=== PATIENT | female | born 1960 | race Caucasian/White ===

== ENCOUNTER → 2021-09-29 11:11 | Outpatient (BNVA) | payer OTHER, SELFPAY | PROVIDERS: PCP Internal Medicine; Visit Provider Nurse Practitioner Family | DX: M47.816 Spondylosis without myelopathy or radiculopathy, lumbar region (principal); M51.36 Other intervertebral disc degeneration, lumbar region; R10.31 Right lower quadrant pain; M53.3 Sacrococcygeal disorders, not elsewhere classified | CPT/HCPCS: 99202 ==

== ENCOUNTER → 2021-10-31 14:11 | Outpatient (BNVA) | payer OTHER, SELFPAY | PROVIDERS: PCP Internal Medicine; Visit Provider Nurse Practitioner Family | DX: M47.816 Spondylosis without myelopathy or radiculopathy, lumbar region (principal); M51.36 Other intervertebral disc degeneration, lumbar region; M53.3 Sacrococcygeal disorders, not elsewhere classified; R10.31 Right lower quadrant pain | CPT/HCPCS: 99212 ==

== ENCOUNTER 2021-11-15 06:20 | Outpatient (REF) | payer OTHER, SELFPAY ==
--- NOTE | ~2021-11-15 | FL_ITS ---
EXAMINATION: Intraoperative fluoroscopy CLINICAL INFORMATION: Sacrococcygeal disorders COMPARISON: None. TECHNIQUE: Intraoperative fluoroscopy was provided for use by Dr. Irizarry. A total of 4 images were saved to PACS. A radiologist was not present during imaging. Today's dictation is only for administrative purposes to document intraoperative fluoroscopic usage. TOTAL FLUOROSCOPIC TIME: 0.3 minutes FL/FL guidance in treatment room FINDINGS~\^^ Intraoperative fluoroscopy provided for use by Dr. Irizarry. Please see operative note for detailed findings.
== END 2021-11-15 06:21 | disposition home or self-care (01) ==
LOC: HO.RADIR 06:20
PROVIDERS: Visit Provider Internal Medicine
DX: M53.3 Sacrococcygeal disorders, not elsewhere classified (principal)
CPT/HCPCS: 64451

== ENCOUNTER → 2021-11-17 11:48 | Outpatient (BNVA) | payer OTHER, SELFPAY | PROVIDERS: PCP Internal Medicine; Visit Provider Nurse Practitioner Family | DX: M53.3 Sacrococcygeal disorders, not elsewhere classified (principal); M25.551 Pain in right hip ==

== ENCOUNTER 2022-01-24 07:33 | Outpatient (REF) | payer OTHER, SELFPAY ==
--- NOTE | ~2022-01-24 | FL_ITS ---
EXAMINATION: XR FLUOROSCOPY WITH IMAGES CLINICAL INFORMATION: M53.3 - Sacrococcygeal disorders, not elsewhere classified COMPARISON: Fluoroscopic spot views 11/15/2021. TECHNIQUE: Fluoroscopy performed by Dr. Yury Shukla. Fluoroscopy time: 0.2 minutes DAP: 0.341 Gycm2 Images: 2 FINDINGS: Spinal needle overlies mid to lower right SI joint. FL/FL guidance in treatment room IMPRESSION: Fluoroscopy for pain management procedure.
== END 2022-01-24 07:34 | disposition home or self-care (01) ==
LOC: HO.RADIR 07:33
PROVIDERS: Visit Provider Internal Medicine
DX: M53.3 Sacrococcygeal disorders, not elsewhere classified (principal)
CPT/HCPCS: 27096; J1040; J2795

== ENCOUNTER → 2022-01-25 11:33 | Outpatient (BNVA) | payer OTHER, SELFPAY | PROVIDERS: PCP Internal Medicine; Visit Provider Anesthesiology | DX: Z13.89 Encounter for screening for other disorder (principal) ==

== ENCOUNTER 2022-04-20 10:13 | Day surgery (SDC) | payer OTHER, SELFPAY ==
[2022-04-16 11:31] VITALS: BMI 25.4
[2022-04-20] VITALS (10 sets, daily range): BP systolic 105–148; BP diastolic 77–90; PULSE 72–88; RESP 14–18; TEMP 36.2–36.6; O2SAT 95–100
--- NOTE | ~2022-04-20 | FL_ITS ---
EXAMINATION: XR FLUOROSCOPY WITH IMAGES CLINICAL INFORMATION: SI joint fusion COMPARISON: Fluoroscopic spot views 01/24/2022 TECHNIQUE: Fluoroscopy performed by Dr. Raymond Prieto. Fluoroscopy time: 0.5. Cumulative Dose: 12.2 mGy. DAP: 3.33 Gy-cm2. Images: 2. FINDINGS: There is a metallic device overlying the mid right sacroiliac joint. FL/FL guidance in OR IMPRESSION: Fluoroscopy for pain management procedure.
[2022-04-20] MEDS: Lactated Ringers 1,000 ML 100 ML IVCONT (10:41)
--- NOTE | 2022-04-20 10:47 | P.HPSUR_ITS ---
Pre-Procedural Eval Section A Date of Service: 04/20/22 The patient is an INPATIENT: No Changes since office visit: Yes Patient answered all questions The History & Physical has been completed within 30 days and I have reviewed it.: No Section B Chief Complaint: sacrococcygeal disorder Details of Present Illness: as above Relevant Family History (Specify if Yes): No Relevant Social History: None Present Medications: None Medical History: No relevant PMH History of Previous Operations: No relevant previous surgery Allergies: Allergies Allergy/AdvReac Type Severity Reaction Status Date / Time hydrocodone Allergy Intermediate Rash Verified 01/25/22 11:34 aspirin AdvReac Severe tachycardia Verified 01/25/22 11:34 Review of Systems Sugical H&P ROS: Negative: Constitution, Cardiovascular, Respiratory, Neurological, Psychiatric, Hem-Onc, Allergic/Immunologic, Gastrointestinal, Genitourinary, Musculoskeletal, Integumentary, Endocrine and Eyes/Ears/Nose/Thro at Exam Surgical H&P Exam: Normal: HEENT, Normal: Heart, Normal: Lungs, Normal: Extremities, Normal: Abdomen, Normal: Skin and Normal: Neurological Plan Diagnosis/Plan: Unchanged I have reviewed the history and physical and performed a pertinent physical examination on my patient. No changes have occurred unless specified.
--- NOTE | 2022-04-20 10:48 | W.PM.OPN ---
Operative Note Operative Note Date of Service: 04/20/22 Narrative: Sacroiliac joint stabilisation procedure. posterior sacroiliac joint fusion on the right using LINQ SI joint stabilization system with C-arm fluoroscopy for guidance.? Shanell is a very pleasant 61 y.o. female who is suffering from the right sacroiliac joint insufficiency and sacroiliitis.??SHe failed conservative management of sacroiliitis.?SHe came today to receive the procedures as above.??The risks and benefits including bleeding, infection, peripheral nerve damage, failure to reduce the pain were explained to the patient.?The patient came to the operating room, he was positioned on the stretcher supine, [place] [employer] monitors were applied and patient was administered with general endotracheal anesthesia.??After that the patient was transferred on operating table and positioned prone with all pressure points protected. The patient was administered 2 grams cefazolin IV approximately 25 minutes before the start of the procedure.? Time-out was performed delineating correct site, side, and nature of the procedure, name and date of of the patient, risk of fire, need for DVT prophylaxis, need for antibiotics.? The patient was transferred?on?radiolucent table. All pressure points were protected again. Lower back and bilateral buttocks were prepped with ChloraPrep and draped with full body drape. 3. 5 cm posterior midline incision over the projection of the right? S1 foramina was performed.? Soft tissue dissection done to sacroiliac joint and thorough blind dissection was made in the direction of the?sacroiliac joint.? K-wire pin was inserted into the sacroiliac joint and guiding instrument was inserted into the joint using the pin as a guide and advanced into the joint on the intermittent anterior posterior and lateral views.??? After that pin was removed and rasping device was inserted to broach and rasp sacroiliac joint.? Once joint was prepared and inserted the structural allograft implant was hammered into the joint . It was packed with ortho biologics in and around the implant to provide better opportunity? for bones fusion.? The position of the allograft was confirmed radiographically.? The wound was irrigated, hemostasis was achieved,? wound was closed in 2 layers.? Surgery was concluded by performing standard suture closing technique:? 0 Polysorb suture was used to close the wound and polisorb 2-0 were used to approximate the level of the skin and carol ann were applied.? ? Skin glue was applied to the skin edges.? Sterile?dressing was applied with bacitracin ointment .? The patient tolerated procedure well she was awaken, extubated? and taken outside of the operating room to PACU where she recovered uneventfully. SHe went home without immediate complications. she will be wearing an SI joint fixation belt for the 10? weeks after the procedure.
--- NOTE | 2022-04-20 11:41 | HO.ANESPROP2 ---
HPI - Anesthesia Eval Consult details Narrative: Sacroilliac joint pain PMFSH Active Problems Active Problems: All Active Problems (Updated 01/25/22 @ 12:34 by Raymond Prieto MD) Spondylosis of lumbar spine (Acute) Disc degeneration, lumbar (Acute) RLQ abdominal pain (Acute) Sacroiliac joint pain (Acute) Right hip pain (Acute) Sacroiliitis (Acute) Past Medical History Medical History (Updated 01/25/22 @ 12:34 by Raymond Prieto MD) Sacroiliitis Family History Family history of problems with anesthesia: No Surgical History Surgical History (Updated 04/16/22 @ 11:31 by Nedra Joseph RN) Surgical history unknown History of Problems with Anesthesia: No Social History Social History Are you DNR?: No Advance Directives: No Advance Directives Information Provided: Yes Recently lost weight without trying: No Nutrition Risks: No Nutritional Risk Meds Allergies Allergy/AdvReac Type Severity Reaction Status Date / Time hydrocodone Allergy Intermediate Rash Verified 01/25/22 11:34 aspirin AdvReac Severe tachycardia Verified 01/25/22 11:34 Active Medications: Current Medications Fentanyl (Fentanyl Citrate/Pf 100 Mcg/2 Ml Vial) 25 mcg IVPUSH Q5M PRN; Protocol PRN Reason: Pain, Moderate (Pain Scale 4-6 Lactated Ringer's (Lr) 1,000 mls @ 100 mls/hr IVCONT .Q10H RONI Last Admin: 04/20/22 10:41 Dose: 100 mls/hr Ondansetron HCl (Ondansetron Hcl 4 Mg/2 Ml Vial) 4 mg IVPUSH ONCE PRN PRN Reason: Nausea and Vomiting Home Medications Medication Instructions Recorded Confirmed Last Taken Type finasteride 5 mg tablet 5 mg PO DAILY alopecia 09/29/21 04/20/22 04/19/22 History lisinopril 10 mg tablet 10 mg PO DAILY 09/29/21 04/20/22 04/19/22 History montelukast 10 mg tablet 10 mg PO DAILY 09/29/21 04/20/22 04/19/22 History venlafaxine 75 mg capsule,extended 75 mg PO BID 09/29/21 04/20/22 04/20/22 History release 24 hr Exam Exam Date and Time: April 20, 2022 1141 Height,Weight and Vital Signs: Height 5 ft 4 in Weight 67.132 kg Last Vital Signs Temp 98 F 04/20/22 10:16 Pulse 85 04/20/22 10:16 Resp 18 04/20/22 10:16 BP 105/77 04/20/22 10:16 Pulse Ox 97 04/20/22 10:16 O2 Del Method 04/20/22 10:16 Airway Mallampati Class: II TM Dist: >3cm Neck ROM: Full Loose/Missing/Broken Teeth: No Heart: rrr+[id number] Lungs: cta b/l Assessment and Plan Assessment Anesthesia Assessment: Anesthesia Plan Discussed and Chart Reviewed Final Anesthetic Review Family History of Problems with Anesthesia: No History of Problems with Anesthesia: No NPO: Yes ASA Class: II Final Preanesthetic Review: No Changes in Pt Med Stat, Meds/Allgs Chart Reviewed, Consent Obtained/Reviewed and Anes Risks/Benef Reviewed Patient Risk: Intermediate Procedure Risk: Intermediate Assessment/Block/Sedation in SS: Assess/Block/Sedation-SS Anesthetic Plan Anesthetic Plan: GA and Agree w/ Assess. and Plan Disposition: Standard PACU
--- NOTE | 2022-04-20 11:45 | P.CONAN_ITS ---
[facility] Active Problems Active Problems: All Active Problems (Updated 01/25/22 @ 12:34 by Raymond Prieto MD) Spondylosis of lumbar spine (Acute) Disc degeneration, lumbar (Acute) RLQ abdominal pain (Acute) Sacroiliac joint pain (Acute) Right hip pain (Acute) Sacroiliitis (Acute) Past Medical History Medical History Sacroiliitis Family History Family history of problems with anesthesia: No Surgical History Surgical History (Updated 04/16/22 @ 11:31 by Nedra Joseph RN) Surgical history unknown History of Problems with Anesthesia: No Social History Social History Are you DNR?: No Advance Directives: No Advance Directives Information Provided: Yes Recently lost weight without trying: No Nutrition Risks: No Nutritional Risk Meds Allergies Allergy/AdvReac Type Severity Reaction Status Date / Time hydrocodone Allergy Intermediate Rash Verified 01/25/22 11:34 aspirin AdvReac Severe tachycardia Verified 01/25/22 11:34 Active Medications: Current Medications Acetaminophen (Acetaminophen 325 Mg Tablet) 650 mg PO ONCE PRN PRN Reason: Pain, Mild (Pain Scale 1-3) Fentanyl (Fentanyl Citrate/Pf 100 Mcg/2 Ml Vial) 25 mcg IVPUSH Q5M PRN; Protocol PRN Reason: Pain, Moderate (Pain Scale 4-6 Fentanyl (Fentanyl Citrate/Pf 100 Mcg/2 Ml Vial) 50 mcg IVPUSH Q5M PRN; Protocol PRN Reason: Pain, Moderate (Pain Scale 4-6 Hydromorphone HCl (Hydromorphone Hcl 0.5 Mg/0.5 Ml Syringe) 0.5 mg IVPUSH Q5M PRN; Protocol PRN Reason: Pain, Severe (Pain Scale 7-10) Lactated Ringer's (Lr) 1,000 mls @ 100 mls/hr IVCONT .Q10H RONI Last Admin: 04/20/22 10:41 Dose: 100 mls/hr Promethazine HCl 6.25 mg/ (Sodium Chloride) 50.25 mls @ 201 mls/hr IV ONCE PRN PRN Reason: Nausea and Vomiting Ondansetron HCl (Ondansetron Hcl 4 Mg/2 Ml Vial) 4 mg IVPUSH ONCE PRN PRN Reason: Nausea and Vomiting Ondansetron HCl (Ondansetron Hcl 4 Mg/2 Ml Vial) 4 mg IVPUSH ONCE PRN PRN Reason: Nausea and Vomiting Oxycodone HCl (Oxycodone Hcl Immed Release 5 Mg Tablet) 10 mg PO ONCE PRN PRN Reason: Pain, Mild (Pain Scale 1-3) Home Medications Medication Instructions Recorded Confirmed Last Taken Type finasteride 5 mg tablet 5 mg PO DAILY alopecia 09/29/21 04/20/22 04/19/22 History lisinopril 10 mg tablet 10 mg PO DAILY 09/29/21 04/20/22 04/19/22 History montelukast 10 mg tablet 10 mg PO DAILY 09/29/21 04/20/22 04/19/22 History venlafaxine 75 mg capsule,extended 75 mg PO BID 09/29/21 04/20/22 04/20/22 History release 24 hr Exam Exam Date and Time: April 20, 2022 1145 Height,Weight and Vital Signs: Height 5 ft 4 in Weight 67.132 kg Last Vital Signs Temp 98 F 04/20/22 10:16 Pulse 85 04/20/22 10:16 Resp 18 04/20/22 10:16 BP 105/77 04/20/22 10:16 Pulse Ox 97 04/20/22 10:16 O2 Del Method 04/20/22 10:16 Airway Mallampati Class: III TM Dist: >3cm Neck ROM: Full Loose/Missing/Broken Teeth: No Heart: rrr Lungs: clear Assessment and Plan Final Anesthetic Review Family History of Problems with Anesthesia: No History of Problems with Anesthesia: No ASA Class: II Final Preanesthetic Review: No Changes in Pt Med Stat, Meds/Allgs Chart Reviewed, Consent Obtained/Reviewed and Anes Risks/Benef Reviewed Patient Risk: Intermediate Procedure Risk: Low Anesthetic Plan Anesthetic Plan: GA Disposition: Standard PACU
--- NOTE | 2022-04-20 13:31 | PM.OP ---
Brief Operative Note Date of Service: 04/20/22 Pre-op diagnosis: Sacroiliitis Post-op diagnosis: same Procedure: Sacroiliac joint stabilization right Implants: lyophilized cadaver bone with biologicals promoting bone growth Surgeon: Raymond Prieto MD Anesthesia: GETA Was an Motor Scooter Repairer used for this Procedure?: No Estimated blood loss (mL): 15 Pathology: none sent Condition: stable Disposition: PACU
[2022-04-20] MEDS: Acetaminophen 325 MG TABLET 650 MG PO (13:35)
[2022-04-20] MEDS: fentaNYL citrate/PF 100 MCG/2 ML VIAL 50 MCG IVPUSH ×2 (13:36→13:41)
[2022-04-20] MEDS: oxyCODONE HCl Immed Release 5 MG TABLET 10 MG PO (14:05)
== END 2022-04-20 14:55 | disposition home or self-care (01) ==
PROVIDERS: PCP Internal Medicine; Visit Provider Anesthesiology
PROC: (CPT 27279; principal; 2022-04-20 11:50)
DX: M53.3 Sacrococcygeal disorders, not elsewhere classified (principal); M25.551 Pain in right hip; M46.1 Sacroiliitis, not elsewhere classified; M54.50 Low back pain, unspecified; Z79.899 Other long term (current) drug therapy; Z88.8 Allergy status to other drugs, medicaments and biological substances
CPT/HCPCS: 27279; C1713; J0330; J0690; J1100; J2250; J2405; J2795; J3010; J3370

== ENCOUNTER → 2022-04-26 09:00 | Outpatient (BNVA) | payer OTHER, SELFPAY | PROVIDERS: PCP Internal Medicine; Visit Provider Anesthesiology | DX: M53.3 Sacrococcygeal disorders, not elsewhere classified (principal); M46.1 Sacroiliitis, not elsewhere classified; M25.551 Pain in right hip; Z98.890 Other specified postprocedural states | CPT/HCPCS: 99212 ==

== ENCOUNTER → 2022-05-09 16:55 | Outpatient (BNVA) | payer OTHER, SELFPAY | PROVIDERS: PCP Internal Medicine; Visit Provider Anesthesiology | DX: M53.3 Sacrococcygeal disorders, not elsewhere classified (principal); M25.551 Pain in right hip; M46.1 Sacroiliitis, not elsewhere classified | CPT/HCPCS: 99212 ==

== ENCOUNTER → 2022-07-04 15:10 | Outpatient (BNVA) | payer OTHER, SELFPAY | PROVIDERS: PCP Internal Medicine; Visit Provider Anesthesiology | DX: M53.3 Sacrococcygeal disorders, not elsewhere classified (principal); M25.551 Pain in right hip; M46.1 Sacroiliitis, not elsewhere classified | CPT/HCPCS: 99212 ==

== ENCOUNTER 2022-07-18 09:52 | Outpatient (REF) | payer OTHER, SELFPAY ==
--- NOTE | ~2022-07-18 | CT_ITS ---
EXAMINATION: CT PELVIS WITHOUT CONTRAST CLINICAL INFORMATION: Sacrococcygeal disorder. COMPARISON: Multiple prior fluoroscopic sacroiliac images, most recent dated 04/20/2022. TECHNIQUE: Helical scanning was performed with submillimeter collimation through the pelvis. Sagittal and coronal multiplanar 2-D reconstructions were obtained. This CT examination was performed using dose optimization techniques as appropriate, variously including the following: *Automated exposure control *Adjustment of mA and/or kV according to patient size (this includes techniques or standardized protocols for targeted exams where dose is matched to indication/reason for exam; i.e. extremities or head) *Use of iterative reconstruction technique DLP: 563 mGy-cm FINDINGS: PELVIS: Moderate stool burden which could indicate a degree of constipation. No bowel wall thickening or inflammatory change. No pelvic bowel obstruction. Unremarkable appendix. The remaining visualized intrapelvic structures are unremarkable. No soft tissue mass or fluid collection. No significant pelvic wall hernia. OSSEOUS STRUCTURES: Orthopedic hardware noted within the posterior aspect of the right sacroiliac joint. No hardware fracture. No perihardware lucency to suggest loosening or infection. No significant sacroiliac joint space narrowing. Small amount of air within the anterior aspect of the right and left sacral iliac joints with mild subchondral sclerosis and tiny marginal osteophytes. No periarticular erosion. No acute fracture or dislocation. No concerning lytic or blastic osseous lesion. The visualized muscles and tendons are grossly intact, however, evaluation is significantly limited on CT examination. CT/CT bony pelvis IMPRESSION: 1. Orthopedic hardware within the posterior aspect of the right sacroiliac joint without evidence of hardware complication. No hardware fracture or perihardware lucency to suggest loosening or infection. 2. Mild degenerative arthritis at the anterior aspect of the right and left sacroiliac joints. No periarticular erosion. 3. Moderate stool burden, which could indicate a degree of constipation.
== END 2022-07-18 09:53 | disposition home or self-care (01) ==
LOC: HO.CT 09:52
PROVIDERS: Visit Provider Anesthesiology
DX: M53.3 Sacrococcygeal disorders, not elsewhere classified (principal); M25.551 Pain in right hip; M46.1 Sacroiliitis, not elsewhere classified
CPT/HCPCS: 72192

== ENCOUNTER → 2022-08-16 08:57 | Outpatient (BNVA) | payer OTHER, SELFPAY | PROVIDERS: PCP Internal Medicine; Visit Provider Anesthesiology | DX: Z13.89 Encounter for screening for other disorder (principal) ==

== ENCOUNTER 2022-09-07 06:07 | Day surgery (SDC) | payer OTHER, SELFPAY ==
[2022-09-03 21:03] VITALS: BMI 25.7
--- NOTE | 2022-09-06 12:07 | P.CONAN_ITS ---
Documented by User: Aby Alvarado NP 09/06/22 12:08 HPI - Anesthesia Eval Consult details Narrative: 62yo F for Left Sacroiliac Joint Stabilization with Fusion s/p right side 03/2022 with GA-ETT 7.5 PMFSH Active Problems Active Problems: All Active Problems (Updated 09/03/22 @ 20:59 by Kristyn Guzman RN) Spondylosis of lumbar spine (Acute) Disc degeneration, lumbar (Acute) RLQ abdominal pain (Acute) Sacroiliac joint pain (Acute) Right hip pain (Acute) Sacroiliitis (Acute) Past Medical History Medical History (Updated 09/03/22 @ 20:59 by Kristyn Guzman RN) Arthritis Back pain GERD (gastroesophageal reflux disease) History of renal stone Migraines Sacroiliac instability Sacroiliitis Family History Family history of problems with anesthesia: No Surgical History Surgical History (Updated 09/03/22 @ 20:58 by Kristyn Guzman RN) H/O cervical discectomy History of toe surgery History of total right knee replacement (TKR) History of Problems with Anesthesia: No Social History Social History Patient Tobacco Use Status: Never used Tobacco Meds Allergies Allergy/AdvReac Type Severity Reaction Status Date / Time hydrocodone Allergy Intermediate Rash Verified 08/16/22 08:58 aspirin AdvReac Severe tachycardia Verified 08/16/22 08:58 shellfish derived AdvReac Vomiting Verified 09/03/22 20:39 Home Medications Medication Instructions Recorded Confirmed Last Taken Type finasteride 5 mg tablet 5 mg PO DAILY alopecia 09/29/21 09/03/22 09/04/22 History montelukast 10 mg tablet 10 mg PO DAILY 09/29/21 09/03/22 09/06/22 History venlafaxine 75 mg capsule,extended 75 mg PO BID 09/29/21 09/03/22 09/07/22 History release 24 hr Exam Exam Date and Time: September 06, 2022 1207 Height,Weight and Vital Signs: Height 5 ft 4 in Weight 68.039 kg Assessment and Plan Assessment Anesthesia Assessment: Chart Reviewed Final Anesthetic Review Family History of Problems with Anesthesia: No History of Problems with Anesthesia: No Documented by User: Jazzmine Marx MD 09/07/22 13:06 [facility] Past Medical History Medical History (Updated 09/03/22 @ 20:59 by Kristyn Guzman, RN) Arthritis Back pain GERD (gastroesophageal reflux disease) History of renal stone Migraines Sacroiliac instability Sacroiliitis Surgical History Surgical History (Updated 09/03/22 @ 20:58 by Kristyn Guzman RN) H/O cervical discectomy History of toe surgery History of total right knee replacement (TKR) Social History Social History Patient Tobacco Use Status: Never used Tobacco Meds Allergies Allergy/AdvReac Type Severity Reaction Status Date / Time hydrocodone Allergy Intermediate Rash Verified 08/16/22 08:58 aspirin AdvReac Severe tachycardia Verified 08/16/22 08:58 shellfish derived AdvReac Vomiting Verified 09/03/22 20:39 Home Medications Medication Instructions Recorded Confirmed Last Taken Type finasteride 5 mg tablet 5 mg PO DAILY alopecia 09/29/21 09/03/22 09/04/22 History montelukast 10 mg tablet 10 mg PO DAILY 09/29/21 09/03/22 09/06/22 History venlafaxine 75 mg capsule,extended 75 mg PO BID 09/29/21 09/03/22 09/07/22 History release 24 hr Exam Airway Mallampati Class: II TM Dist: >3cm Neck ROM: Limited (Good ext/flexion sp plates) Heart: rr Lungs: cta Assessment and Plan Final Anesthetic Review NPO: Yes ASA Class: II Final Preanesthetic Review: No Changes in Pt Med Stat, Meds/Allgs Chart Reviewed, Consent Obtained/Reviewed and Anes Risks/Benef Reviewed Patient Risk: Low Procedure Risk: Low Anesthetic Plan Anesthetic Plan: MAC: Disposition: Standard PACU
--- NOTE | 2022-09-06 14:56 | P.HPSUR_ITS ---
Pre-Procedural Eval Section A Date of Service: 09/06/22 The patient is an INPATIENT: No Changes since office visit: Yes Patient answered all questions The History & Physical has been completed within 30 days and I have reviewed it.: No Section B Chief Complaint: Sacroiliitis,Sacrococcygeal disorders, Details of Present Illness: as above Relevant Family History (Specify if Yes): No Relevant Social History: None Present Medications: None Medical History: No relevant PMH History of Previous Operations: No relevant previous surgery Allergies: Allergies Allergy/AdvReac Type Severity Reaction Status Date / Time hydrocodone Allergy Intermediate Rash Verified 08/16/22 08:58 aspirin AdvReac Severe tachycardia Verified 08/16/22 08:58 shellfish derived AdvReac Vomiting Verified 09/03/22 20:39 Review of Systems Sugical H&P ROS: Negative: Constitution, Cardiovascular, Respiratory, Neurological, Psychiatric, Hem-Onc, Allergic/Immunologic, Gastrointestinal, Gen itourinary, Musculoskeletal, Integumentary, Endocrine and Eyes/Ears/Nose/Throat Exam Surgical H&P Exam: Normal: HEENT, Normal: Heart, Normal: Lungs, Normal: Extremities, Normal: Abdomen, Normal: Skin and Normal: Neurological Plan Diagnosis/Plan: Unchanged I have reviewed the history and physical and performed a pertinent physical examination on my patient. No changes have occurred unless specified. Time Spent With Patient Time: Total time managing care of this patient today ____ minutes.
--- NOTE | ~2022-09-07 | FL_ITS ---
EXAMINATION: XR FLUOROSCOPY WITH IMAGES CLINICAL INFORMATION: Sacroiliac joint effusion. COMPARISON: CT pelvis 07/18/2022 TECHNIQUE: Fluoroscopy Supervised By: Dr. Raymond Prieto. Fluoroscopy Time: 0.6 minutes. Cumulative Dose: 27.1 mGy. DAP: 7.40 Gycm2. Images: 11. FINDINGS: Initial images demonstrate spinal needle overlying mid left SI joint with needle tip at mid depth. Subsequent images show hardware and a cannulated device overlying the SI joint. Fusion hardware seen mid SI joint. There is prior fusion contralateral right side is noted on CT 07/18/2022. FL/FL guidance in OR IMPRESSION: Fluoroscopy for pain management procedure.
[2022-09-07 06:08] VITALS: BP 144/92; PULSE 86; RESP 20; TEMP 36.6; O2SAT 98
[2022-09-07] MEDS: Lactated Ringers 1,000 ML 100 ML IVCONT (06:36)
[2022-09-07 09:08] VITALS: BP 167/97; PULSE 83; RESP 16; TEMP 36.3; O2SAT 97
[2022-09-07 09:13] VITALS: BP 160/92; PULSE 74; RESP 16; O2SAT 98
--- NOTE | 2022-09-07 09:13 | PM.OP ---
Brief Operative Note Date of Service: 04/20/22 Pre-op diagnosis: Sacroiliitis Post-op diagnosis: same Procedure: Sacroiliac joint stabilization left Implants: lyophilized cadaver bone with biologicals promoting bone growth Surgeon: Raymond Prieto MD Anesthesia: GETA Was an System Support Technician used for this Procedure?: No Estimated blood loss (mL): 15 Pathology: none sent Condition: stable Disposition: PACU
--- NOTE | 2022-09-07 09:14 | P.OP_ITS ---
Operative Note Operative Note Date of Service: 09/07/22 Narrative: Sacroiliac joint stabilisation procedure. posterior sacroiliac joint fusion on the left using LINQ SI joint stabilization system with C-arm fluoroscopy for guidance.? Shanell is a very pleasant 61 y.o. female who is suffering from the left sacroiliac joint insufficiency and sacroiliitis.??SHe failed conservative management of sacroiliitis.?SHe came today to receive the procedures as above.??The risks and benefits including bleeding, infection, peripheral nerve damage, failure to reduce the pain were explained to the patient.?The patient came to the operating room, he was positioned on the stretcher supine, [place] [employer] monitors were applied and patient was administered with general endotracheal anesthesia.??After that the patient was transferred on operating table and positioned prone with all pressure points protected. The patient was administered 2 grams cefazolin IV approximately 25 minutes before the start of the procedure.? Time-out was performed delineating correct site, side, and nature of the procedure, name and date of of the patient, risk of fire, need for DVT prophylaxis, need for antibiotics.? The patient was transferred?on?radiolucent table. All pressure points were protected again. Lower back and bilateral buttocks were prepped with ChloraPrep and draped with full body drape. 3. 5 cm posterior midline incision over the projection of the right? S1 foramina was performed.? Soft tissue dissection done to sacroiliac joint and thorough blind dissection was made in the direction of the?sacroiliac joint.? K-wire pin was inserted into the left sacroiliac joint and guiding instrument was inserted into the joint using the pin as a guide and advanced into the joint on the intermittent anterior posterior and lateral views.??? After that pin was removed and rasping device was inserted to broach and rasp sacroiliac joint.? Once joint was prepared and inserted the structural allograft implant was hammered into the joint . It was packed with ortho biologics in and around the implant to provide better opportunity? for bones fusion.? The position of the allograft was confirmed radiographically.? The wound was irrigated, hemostasis was achieved,? wound was closed in 2 layers.? Surgery was concluded by performing standard suture closing technique:? 0 Polysorb suture was used to close the wound and polisorb 2-0 were used to approximate the level of the skin and carol ann were applied.? ? Skin glue was applied to the skin edges.? Sterile?dressing was applied with bacitracin ointment .? The patient tolerated procedure well she was awaken, extubated? and taken outside of the operating room to PACU where she recovered uneventfully. SHe went home without immediate complications. she will be wearing an SI joint fixation belt for the 1 0? weeks after the procedure.
[2022-09-07 09:18] VITALS: BP 133/78; PULSE 78; RESP 17; O2SAT 98
[2022-09-07 09:23] VITALS: BP 150/81; PULSE 74; RESP 18; O2SAT 98
[2022-09-07 09:38] VITALS: BP 137/75; PULSE 69; RESP 18; TEMP 36.4; O2SAT 97
== END 2022-09-07 10:15 | disposition home or self-care (01) ==
PROVIDERS: PCP Internal Medicine; Visit Provider Anesthesiology
PROC: (CPT 27279; principal; 2022-09-07 07:30)
DX: M46.1 Sacroiliitis, not elsewhere classified (principal); M53.3 Sacrococcygeal disorders, not elsewhere classified; M25.551 Pain in right hip; Z79.899 Other long term (current) drug therapy; Z88.8 Allergy status to other drugs, medicaments and biological substances; Z96.651 Presence of right artificial knee joint
CPT/HCPCS: 27279; C1713; J0330; J0690; J2250; J2795; J3010; J3370

== ENCOUNTER → 2022-09-13 09:47 | Outpatient (BNVA) | payer OTHER, SELFPAY | PROVIDERS: PCP Internal Medicine; Visit Provider Anesthesiology | DX: M53.3 Sacrococcygeal disorders, not elsewhere classified (principal); M25.551 Pain in right hip; M46.1 Sacroiliitis, not elsewhere classified | CPT/HCPCS: 99212 ==

== ENCOUNTER → 2022-09-20 09:49 | Outpatient (BNVA) | payer OTHER, SELFPAY | PROVIDERS: PCP Internal Medicine; Visit Provider Anesthesiology | DX: M53.3 Sacrococcygeal disorders, not elsewhere classified (principal); M25.551 Pain in right hip; M46.1 Sacroiliitis, not elsewhere classified | CPT/HCPCS: 99212 ==

== ENCOUNTER → 2022-11-14 11:52 | Outpatient (BNVA) | payer OTHER, SELFPAY | PROVIDERS: PCP Internal Medicine; Visit Provider Anesthesiology | DX: M53.3 Sacrococcygeal disorders, not elsewhere classified (principal); M46.1 Sacroiliitis, not elsewhere classified; M25.551 Pain in right hip; G58.9 Mononeuropathy, unspecified | CPT/HCPCS: 99212 ==

== ENCOUNTER 2022-12-25 06:08 | Outpatient (REF) | payer OTHER, SELFPAY ==
--- NOTE | ~2022-12-25 | FL_ITS ---
EXAMINATION: XR FLUOROSCOPY WITH IMAGES CLINICAL INFORMATION: G58.9 - Mononeuropathy, unspecified COMPARISON: CT pelvis 07/18/2022 TECHNIQUE: Fluoroscopy Supervised By: Dr. Raymond Prieto. Fluoroscopy Time: 0.4 minutes. Cumulative Dose: 3.72 mGy. DAP: 1.01 Gycm2. Images: 4. FINDINGS: There are 3 spinal needles with tips overlying the superior right iliac crest. There is contrast in the overlying soft tissue. No visible vascular communication. FL/FL guidance in treatment room IMPRESSION: Fluoroscopy for pain management procedures.
== END 2022-12-25 06:09 | disposition home or self-care (01) ==
LOC: CF 06:08
PROVIDERS: Visit Provider Anesthesiology
DX: G58.9 Mononeuropathy, unspecified (principal)
CPT/HCPCS: 64450; J2795

== ENCOUNTER → 2023-01-14 16:07 | Outpatient (BNVA) | payer OTHER, SELFPAY | PROVIDERS: PCP Internal Medicine; Visit Provider Anesthesiology ==

== ENCOUNTER 2023-02-05 06:16 | Outpatient (REF) | payer OTHER, SELFPAY ==
--- NOTE | ~2023-02-05 | FL_ITS ---
EXAMINATION: XR FLUOROSCOPY WITH IMAGES CLINICAL INFORMATION: Mononeuropathy, unspecified COMPARISON: None available. TECHNIQUE: Fluoroscopy Supervised By: Dr. Prieto. Fluoroscopy Time: 0.4 minutes. Cumulative Dose: 3.73 mGy. DAP: 1.01 Gycm2. Images: 3. FINDINGS: Images demonstrate needle placement and contrast injection of the soft tissues adjacent to the left iliac crest and lateral L4 and L5 vertebrae. FL/FL guidance in treatment room IMPRESSION: Fluoroscopy guidance for pain management procedure
== END 2023-02-05 06:17 | disposition home or self-care (01) ==
LOC: CF 06:16
PROVIDERS: Visit Provider Anesthesiology
DX: G58.9 Mononeuropathy, unspecified (principal); M53.3 Sacrococcygeal disorders, not elsewhere classified; M46.1 Sacroiliitis, not elsewhere classified; M25.551 Pain in right hip
CPT/HCPCS: 64450

== ENCOUNTER → 2023-02-07 09:08 | Outpatient (BNVA) | payer OTHER, SELFPAY | PROVIDERS: PCP Internal Medicine; Visit Provider Anesthesiology ==

== ENCOUNTER 2023-02-28 13:07 | Day surgery (SDC) | payer OTHER, SELFPAY ==
--- NOTE | ~2023-02-28 | FL_ITS ---
EXAMINATION: XR FLUOROSCOPY WITH IMAGES CLINICAL INFORMATION: There are ablation therapy for pain COMPARISON: 02/05/2023 TECHNIQUE: Fluoroscopy Supervised By: Dr. Raymond Prieto. Fluoroscopy Time: 0.3 minutes. Cumulative Dose: 2.94 mGy. DAP: 0.801 Gycm2. Images: 1. FINDINGS: 4 sets of Electrodes overlie the left iliac crest. FL/FL guidance in OR IMPRESSION: Fluoroscopy for pain management procedure.
[2023-02-28 13:23] VITALS: BMI 25.7
[2023-02-28 13:27] VITALS: BP 108/76; PULSE 99; RESP 18; TEMP 36.4; O2SAT 97
--- NOTE | 2023-02-28 13:48 | MHC.SHP ---
Pre-Procedural Eval Section A Date of Service: 02/28/23 The patient is an INPATIENT: No Changes since office visit: Yes Patient answered all questions The History & Physical has been completed within 30 days and I have reviewed it.: No Section B Chief Complaint: Mononeuropathy, unspecified Details of Present Illness: as above Relevant Family History (Specify if Yes): No Relevant Social History: None Present Medications: None Medical History: No relevant PMH History of Previous Operations: No relevant previous surgery Allergies: Allergies Allergy/AdvReac Type Severity Reaction Status Date / Time hydrocodone Allergy Intermediate Rash Verified 02/28/23 13:29 aspirin AdvReac Severe tachycardia Verified 02/28/23 13:29 shellfish derived AdvReac Vomiting Verified 02/28/23 13:29 Review of Systems Sugical H&P ROS: Negative: Constitution, Cardiovascular, Respiratory, Neurological, Psychiatric, Hem-Onc, Allergic/Immunologic, Gastrointestinal, Genitourinary, Musculoskeletal, Integumentary, Endocrine and Eyes/Ears/Nose/Throat Exam Surgical H&P Exam: Normal: HEENT, Normal: Heart, Normal: Lungs, Normal: Extremities, Normal: Abdomen, Normal: Skin and Normal: Neurological Plan Diagnosis/Plan: Unchanged I have reviewed the history and physical and performed a pertinent physical examination on my patient. No changes have occurred unless specified. Time Spent With Patient Time: Total time managing care of this patient today __5__ minutes.
[2023-02-28 14:42] VITALS: BP 120/81; PULSE 85; RESP 16; O2SAT 100
--- NOTE | 2023-02-28 14:58 | PM.OP ---
Brief Operative Note Date of Service: 02/28/23 Pre-op diagnosis: cluneal nerve entrapment right Post-op diagnosis: same Procedure: cluneal nerve RFA right Surgeon: Raymond Prieto MD Was an Ict Programmer used for this Procedure?: No Estimated blood loss (mL): 3 Condition: stable Disposition: PACU
--- NOTE | 2023-02-28 14:59 | W.PM.OPN ---
Operative Note Operative Note Date of Service: 02/28/23 Narrative: RFA right cluneal nerves ? ?Informed consent was explained to the patient. All questions were explained and? answered.? The patient was taken inside the operating room where she was positioned prone on the operating table. Time-out was performed delineating correct site, side, the nature of the procedure, patient's allergy, . All operating room staff was participating in OR time-out procedure. ? ? The lower back was prepped with ChloraPrep and draped with sterile towels.? C-arm was brought over the operating field and sq picture of right iliac crest was delineated on the screen.? Point of interest were delineated as the points approximately 1 cm apart starting from the confluence of the ilac crest with sacral ala to the very top point of the iliac creast. The projection of the iliac crest to the skin was injected with mixture of lidocaine 2% and ropivacain 1% 1:1 10 mls. .?.? After that Radiofrequency canulas were driven to the points of interest as described above. After radiofrequency cannulas gently touch the bone, the stylet was replaced with nitinol electrodes, the motor testing was performed, it was negative for stimulation of the somatic nerves of the right lower extremity. Each needle was injected with mixture of lidocaine 2% and ropivacaine 0.5% 1-1 1.5-2 mL. We waited for full 120 seconds. After that the energy was applied at temperature of 90 degrees centigrade for 90 seconds. After that the electrodes were rotated 180 degrees and energy application was applied again at the same parameters. Total of 7 needle passes was performed to cover all possible locations of the cluneal nerves. Upon completion of the procedure cannulas were removed and dressing was applied. Patient tolerated procedure well.
== END 2023-02-28 15:13 | disposition home or self-care (01) ==
PROVIDERS: PCP Internal Medicine; Visit Provider Anesthesiology
PROC: (CPT 64640; principal; 2023-02-28 14:00)
DX: G58.9 Mononeuropathy, unspecified (principal); M53.3 Sacrococcygeal disorders, not elsewhere classified; M46.1 Sacroiliitis, not elsewhere classified; Z88.5 Allergy status to narcotic agent; Z88.6 Allergy status to analgesic agent
CPT/HCPCS: 64640; J2795; J3301

== ENCOUNTER 2023-04-22 15:50 | Outpatient (AMB) | payer OTHER, SELFPAY ==
--- NOTE | 2023-04-22 15:52 | A.OFFVIS_ITS ---
Intake Vital Signs 04/22/23 15:55 Height 5 ft 4 in Weight 148 lb BMI 25.4 BP 124/80 Blood Pressure Location Rt brachial Respiration 18 Pulse 86 Pulse Source Pulse Oximeter Pulse Oximetry (%) 100 Oxygen Delivery Method Room Air Intake Visit Reasons: s/p R. Cluneal RFA 02/28/23 Intake Note: patient comes in for post-op. Allergies hydrocodone Allergy (Intermediate, Verified 04/22/23 15:56) Rash aspirin Adverse Reaction (Severe, Verified 04/22/23 15:56) tachycardia shellfish derived Adverse Reaction (Verified 04/22/23 15:56) Vomiting HPI HPI Comments History of Present Illness Details Tonja is in the office today to discuss the results of the radiofrequency ablation of cluneal nerves. She reports minimal pain improvement after cluneal nerve RFA. She reports appropriate numbness the projection of the posterior thigh and buttock however she reports that pain ?deep inside ?changed very little. I am not sure how else I can help this patient. She showed me today reports on her cellphone of the MRI of her lumbar spine which demonstrated some endplate changes. I requested her to obtain the disc for her MRI and I will read the disc possibly will have it uploaded with the our Radiology Department and request repeated reading with emphasis on the Modic type changes in her lumbar spine. She reports today that she feels severe pain and sensation of back locking when she flex her back forward as well as pain increase with prolonged sitting and prolonged laying down. Prior she had reported 100% pain improvement for 24 hours after the diagnostic cluneal nerve block. She chose to go for radiofrequency ablation which was not effective for her. Prior: very pleasant 61 years old female who is in my office under observation with sacroiliac joint problems.? She received right sacroiliac joint stabilization with fusion paintech and she reported that her condition became so much better after the procedure she reports that her pain now is very rare and very mild.??However she requested to proceed with contralateral fusion anyway as it was discussed in the past. The procedure was performed on 09/07/2022. She presented herself today with complaints on pain in the projection of the right iliac crest rather than the pain in sacroiliac joints.? She reports that when she is getting off of the chair sitting position her pain is aggravated.? The pain radiates into anterior abdomen. The patient was scheduled and received right cluneal nerve block and this resulted in complete 100% pain improvement for the next 2 days after the injection. Now I can make an suggestion that her problem is actually cluneal nerve entrapment. Now on the background of good pain relieve on the right iliac crest she reports that left iliac crest starts to bother her and she wants me to perform the same injection on the left side for her. We also discussed the treatment of the right cluneal nerve entrapment. I told her that she have a choice between the RFA of the cluneal nerves versus PNS of the cluneal nerves curonics. Patient decided to think about it. She wants to receive a brochure about curonics. I will schedule this patient for decide procedure after she will decide what to do about it. [facility] Medical History (Updated 04/22/23 @ 17:21 by Raymond Prieto MD) Arthritis Back pain GERD (gastroesophageal reflux disease) History of renal stone Migraines Sacroiliac instability Sacroiliitis Surgical History H/O cervical discectomy History of toe surgery History of total right knee replacement (TKR) Social History Patient Tobacco Use Status: Never used Tobacco Review of Systems Const All systems reviewed & are unremarkable except as noted in HPI and below Physical Exam Vital Signs: Last Vital Signs Pulse 86 04/22/23 15:55 Resp 18 04/22/23 15:55 BP 124/80 04/22/23 15:55 Pulse Ox 100 04/22/23 15:55 Oxygen Delivery Method Room Air 04/22/23 15:55 BMI result Body Mass Index 25.4 Const General: cooperative and no acute distress Orientation/consciousness: patient oriented x3 Resp Effort & Inspection: normal respiratory effort, able to speak in complete sentences and no audible wheezes Back/Spine/Pelvis Other: Severe tenderness on palpation in projection of the right iliac crest. Palpation of the right iliac crest results in pain radiation into the right lower abdomen. Neuro General: patient oriented x3 Psych Mental Status: mental status grossly normal Speech and movement: Clear speech present Attitude: cooperative Thought process: Normal thought process present Thought content: Normal thought content present Insight: Good insight present (Psych) Judgement: Good judgement present (Psych) Assessment & Plan Assessment & Plan (1) Sacroiliac joint pain: Code(s): M53.3 - Sacrococcygeal disorders, not elsewhere classified (2) Sacroiliitis: Code(s): M46.1 - Sacroiliitis, not elsewhere classified (3) Right hip pain: Code(s): M25.551 - Pain in right hip (4) Mononeuropathy, unspecified: Code(s): G58.9 - Mononeuropathy, unspecified (5) Vertebrogenic low back pain: Code(s): M54.51 - Vertebrogenic low back pain Plan There were good results of the sacroiliac joint stabilization procedure. After the right sided implant she admitted not- recommended activity: dancing under TV commercial music on day 10 postoperatively. Camino sharp pain in the area of the implant. When she stopped exercise the pain disappeared. Now continues to be very careful after left SI joint fusion the carol ann removed today. CT scan performed and the good position of the element in the posterior sacroiliac joint on the right was demonstrated. No fracture no lytic lesions no dislodgement. She is status post left-sided implantation with excellent results. No pain on the left at all. Shanell received diagnostic cluneal nerve block. She reports excellent results with 100% of pain improvement for 2 days after the procedure. The procedure was on the right. After that I perform diagnostic cluneal nerve block on the left and she again reports 100% pain relief. However RFA which she chose over PNS stim wave resulted in no pain improvement in only sensation of numbness in the buttock and the thigh. It is hard to decide how else I can help this patient. I would like to obtain her old MRI which was done 2 years ago and see by myself and have radiologist to evaluate Modic type 1 endplate changes. On the physical exam she reported locking sensation in severe pain with attempt to flex forward. She also reports increased pain with prolonged sitting. This might indicate that the patient is suffering from vertebra genic pain. Coding Level of Care Code Est Pt Level 4 (42524) Diagnoses Sacroiliac joint pain M53.3 Sacroiliitis M46.1 Right hip pain M25.551 Mononeuropathy, unspecified G58.9 Vertebrogenic low back pain M54.51
[2023-04-22 15:55] VITALS: BP 124/80; PULSE 86; RESP 18; O2SAT 100; BMI 25.4
== END 2023-04-22 16:07 | disposition home or self-care (01) ==
PROVIDERS: PCP Internal Medicine; Visit Provider Anesthesiology
DX: M53.3 Sacrococcygeal disorders, not elsewhere classified (principal); M46.1 Sacroiliitis, not elsewhere classified; M25.551 Pain in right hip; G58.9 Mononeuropathy, unspecified; M54.51 Vertebrogenic low back pain
CPT/HCPCS: 99214

== ENCOUNTER → 2023-04-22 15:50 | Outpatient (BNVA) | payer OTHER, SELFPAY | PROVIDERS: PCP Internal Medicine; Visit Provider Anesthesiology | DX: M53.3 Sacrococcygeal disorders, not elsewhere classified (principal); M46.1 Sacroiliitis, not elsewhere classified; M25.551 Pain in right hip; G58.9 Mononeuropathy, unspecified; M54.51 Vertebrogenic low back pain | CPT/HCPCS: 99212 ==

== ENCOUNTER 2023-12-18 12:08 | Outpatient (REF) | payer OTHER, SELFPAY ==
[2023-12-18 14:51] LABS: Erythrocyte Sedimentation Rate 9 MM/HR (0-20)
[2023-12-22 16:33] LABS: Aldolase 4.2 U/L (<=8.1)
[2023-12-24 09:14] LABS: Acetylcholine Recep Modulating 7
[2023-12-28 20:19] LABS: Acetylcholine Recept. Blocking <15 (<15)
[2023-12-30 19:29] LABS: Acetylcholine Receptor Binding <0.30 nmol/L
== END 2023-12-18 12:09 | disposition home or self-care (01) ==
LOC: HO.LAB 12:08
PROVIDERS: PCP Internal Medicine; Visit Provider Psychiatry & Neurology Neurology
DX: G72.9 Myopathy, unspecified (principal)
CPT/HCPCS: 36415; 82085; 82550; 85652; 86041; 86042; 86043